=== PATIENT | female | born 1995 | race Caucasian/White ===

== ENCOUNTER 2019-08-04 17:38 | Emergency (ER) | payer SELFPAY ==
[~2019-08-04] VITALS: Ht 172 cm; Wt 63.0 kg
[~2019-08-04 17:38] MED LIST: CEPH-507 PO; CIPR-225 PO; CIPR500T78 PO; DOCU100C37 PO; IBUP-1780 PO; INDO25CA PO; NITR-65 PO; OXYC-465 PO; PREN1TAB79 PO; RANI-613 PO
[2019-08-04] MEDS ORDERED: AMOXICILLIN 500 MG (POLYMOX) CAP PO STA (18:03)
[2019-08-04] MEDS ORDERED: ACET-789 PO (18:09)
[2019-08-04] MEDS ORDERED: AMOX500C2 PO (18:09)
--- NOTE | 2019-08-04 18:10 | ED EENT ---
History of Present Illness General Chief Complaint: Dental Problems/Pain Stated Complaint: TOOTHACHE 4 1/2 WKS Nursing Triage Note: PT PRESENTS TO ED WITH COMPLAINTS OF L UPPER DENTAL PAIN STARTING AT 1600. PT REPORTS SHE HAS HAD ISSUES WITH HER TEETH BUT HAS BEEN UNBALE TO GET AN APPOINTMENT AT THE DENTAL CLINIC. PT ALSO REPORTS BEING APROX 5 WEEKS PREG Source: patient Exam Limitations: no limitations History of Present Illness Date Seen by Provider: Aug 04, 2019 Time Seen by Provider: 18:05 Initial Comments To ER with left lower dental pain since earlier today. She's had a broken left molar for quite some time but only became painful today. Additionally she is about 5 weeks . Timing/Duration: abrupt Severity: moderate Location: dental Associated Symptoms: denies symptoms Allergies and Home Medications Allergies Coded Allergies: No Known Drug Allergies (Unverified , 03/01/11) Home Medications No Active Prescriptions or Reported Meds Patient Home Medication List Home Medication List Reviewed: Yes Review of Systems Review of Systems Constitutional: see HPI Eyes: No Symptoms Reported Ears: No Symptoms Reported Nose: no symptoms reported Mouth: see HPI, pain Throat: no symptoms reported Respiratory: no symptoms reported Cardiovascular: no symptoms reported Musculoskeletal: no symptoms reported Past Efqvhbl-Jhrwnz-Zseulp Hx Patient Social History Alcohol Use: Denies Use Recreational Drug Use: No Smoking Status: Former Smoker Type Used: Cigarettes Former Smoker, Quit: Aug 04, 2019 Recent Foreign Travel: No Contact w/Someone Who Travel: No Recent Infectious Disease Expo: No Recent Hopitalizations: No Physical Abuse: No Sexual Abuse: No Mistreated: No Fear: No Immunizations Up To Date Tetanus Booster (TDap): Unknown PED Vaccines UTD: Yes Date of Influenza Vaccine: May 21, 2015 Seasonal Allergies Seasonal Allergies: No Past Medical History Surgeries: No Respiratory: No Cardiac: No Neurological: No Reproductive Disorders: No Female Reproductive Disorders: Denies Sexually Transmitted Disease: No HIV/AIDS: No Genitourinary: No Gastrointestinal: No Musculoskeletal: No Endocrine: No Cancer: No Psychosocial: No Integumentary: No Blood Disorders: No Adverse Reaction/Blood Tranf: No Family Medical History FH: bipolar disorder 19 MOTHER FH: brain tumor 19 FATHER Thyroid disease G8 SISTER Physical Exam Vital Signs Vital Signs - First Documented 08/04/19 17:46 Temp 35.8 Pulse 127 Resp 18 B/P (MAP) 156/97 (116) Pulse Ox 97 Height, Weight, BMI Height: 5'7" Weight: 160lbs. 0.0oz. [id number]; 21.00 BMI Method:Stated General Appearance: WD/WN, no apparent distress Eyes: bilateral eye normal inspection, bilateral eye PERRL, bilateral eye EOMI Ears: bilateral ear auricle normal, bilateral ear canal normal, bilateral ear TM normal Mouth/Throat: normal mouth inspection, other (carious tender left molar lower. No surrounding abscess that is palpable) Neck: non-tender, full range of motion Cardiovascular: regular rate, rhythm, no murmur Respiratory: normal breath sounds, no respiratory distress, no accessory muscle use Gastrointestinal: normal bowel sounds, non tender Neurologic/Psychiatric: alert, normal mood/affect, oriented x 3 Skin: normal color, warm/dry I offered her a inferior alveolar nerve block which she accepted, bupivacaine 0.5% without epinephrine 2 mL was used. Progress/Results/Core Measures Results/Orders My Orders Orders - KALE MÉNDEZ APRN Amoxicillin Capsule (Polymox Capsule) (08/04/19 18:03) Rx-Acetaminophen/Codeine (Rx-Tylenol #3) (08/04/19 18:15) Vital Signs/I&O 08/04/19 17:46 Temp 35.8 Pulse 127 Resp 18 B/P (MAP) 156/97 (116) Pulse Ox 97 Blood Pressure Mean: 116 Departure Impression Primary Impression: Dental caries extending into dentine Additional Impression: Pain, dental Disposition: HOME, SELF-CARE Condition: Improved Departure-Patient Inst. Referrals: NO,LOCAL PHYSICIAN (PCP/Family) Primary Care Physician Patient Instructions: Dental Pain Add. Discharge Instructions: 1. Use the wax provided to cover this open area of the broken tooth as needed. Call your dentist Tuesday for follow-up. Antibiotics and pain medication in the meantime. All discharge instructions reviewed with patient and/or family. Voiced understanding. Scripts Acetaminophen with Codeine (Tylenol with Codeine #3 Tablet) 1 Each Tablet 1 EACH PO Q6H PRN for PAIN-SEVERE (8-10) for 7 Days, #10 TAB Prov: KALE MÉNDEZ APRN 08/04/19 Amoxicillin (Amoxicillin) 500 Mg Capsule 500 MG PO TID, #21 CAP 0 Refills Prov: KALE MÉNDEZ APRN 08/04/19 KALE MÉNDEZ APRN Aug 04, 2019 18:10
[2019-08-04] MEDS ORDERED: RX-ACETAMINOPHEN/CODEINE TAB PPK #4 PO SCH (18:15)
[2019-08-04 18:31] VITALS: BP 132/78
== END 2019-08-04 18:31 | disposition home or self-care (01) ==
LOC: EDUNIT# 17:38 → ER 17:40
DX: O99.611 Diseases of the digestive system complicating pregnancy, first trimester (principal); K02.9 Dental caries, unspecified; Z87.891 Personal history of nicotine dependence; Z3A.01 Less than 8 weeks gestation of pregnancy
CPT/HCPCS: 99283

== ENCOUNTER 2020-03-07 09:57 | Inpatient (IN) | payer MEDICAID ==
[2020-03-07] VITALS (38 sets, daily range): BP systolic 109–151; BP diastolic 55–84
[~2020-03-07] VITALS: Ht 172.7 cm; Wt 84.2 kg
[~2020-03-07 09:57] MED LIST changes: +ACET-789 PO; +AMOX500C2 PO
--- NOTE | 2020-03-07 10:00 | NUR ---
PERI HAND presented to unit via from ED, accompanied by family, with c/o CONTRACTIONS. PERI HAND weighed, gowned, voided, and to bed. EFHM and TOCO applied, VS taken. PERI HAND oriented to bed controls, call light, TV, heat, and A/C controls.
[2020-03-07 10:33] LABS: BILIRUBIN,URINE NEGATIVE (NEGATIVE); CLARITY,URINE CLEAR; COLOR,URINE YELLOW; GLUCOSE, URINE (UA) NEGATIVE (NEGATIVE); KETONES,URINE NEGATIVE (NEGATIVE); LEUKOCYTE ESTERASE ,URINE 1+ (NEGATIVE); NITRITE,URINE NEGATIVE (NEGATIVE); PROTEIN,URINE NEGATIVE (NEGATIVE)
[2020-03-07 10:39] LABS: BACTERIA,URINE FEW /HPF; SQUAMOUS EPITHELIAL CELL,UR 25-50 /HPF
--- NOTE | 2020-03-07 13:20 | NUR ---
sve by this Rn. 3.5-4cm. thick posterior cervix -2 station. ballotable.
--- NOTE | 2020-03-07 13:25 | NUR ---
dr rodriguez updated on most recent cervical exam, contraction pattern. new orders received.
[2020-03-07] MEDS ORDERED: AMPICILLIN FOR IV USE 2,000 MG in WATER (STERILE) FOR INJECTION 14.8 ML IV ONE (13:30)
[2020-03-07] MEDS: D5 LR IV SOLUTION 1,000 ML IV SCH ×2 (13:34→13:35)
[2020-03-07] MEDS ORDERED: D5 LR IV SOLUTION 1,000 ML IV SCH ×2 (13:45→16:25)
[2020-03-07] MEDS ORDERED: AMPICILLIN FOR IV USE 2,000 MG VIAL ONE (13:48)
[2020-03-07] MEDS ORDERED: WATER (STERILE) FOR INJECTION 20 ML ONE (13:48)
[2020-03-07 13:55] LABS: BASOPHILS % (AUTO) 0 % (0-10); EOSINOPHILS # (AUTO) 0.1 10^3/uL (0.0-0.3); EOSINOPHILS % (AUTO) 1 % (0-10); HEMATOCRIT 33 % (35-52); HEMOGLOBIN 11.5 G/DL (11.5-16.0); LYMPHOCYTES # (AUTO) 2.4 X 10^3 (1.0-4.0); LYMPHOCYTES % (AUTO) 16 % (12-44); MEAN CORPUSCULAR HGB CONC 34 G/DL (32-36); MEAN CORPUSCULAR VOLUME 94 FL (80-99); MEAN PLATELET VOLUME 9.1 FL (7.4-10.4); MONOCYTES # (AUTO) 1.3 X 10^3 (0.0-1.0); MONOCYTES % (AUTO) 9 % (0-12); NEUTROPHILS % (AUTO) 75 % (42-75); PLATELET COUNT 264 10^3/uL (130-400); RED CELL DISTRIBUTION WIDTH 11.9 % (10.0-14.5); WHITE BLOOD COUNT 14.8 10^3/uL (4.3-11.0)
[2020-03-07 13:56] LABS: MEAN CORPUSCULAR HEMOGLOBIN 32 PG (25-34)
--- NOTE | 2020-03-07 16:10 | NUR ---
dr rodriguez here to patient bedside. assessing contractions/fhr pattern. new orders received.
[2020-03-07] MEDS ORDERED: OXYTOCIN PRE-MIX DRIP 500 ML IV SCH ×2 (16:25→16:26)
--- NOTE | 2020-03-07 16:25 | History & Physical ---
History and Physical Date Seen by Provider: Mar 07, 2020 Time Seen by Provider: 16:23 This patient is a 24-year-old 2 para 1 white female with an EDC of April 08, 2020. She presented now at 35-6/7 weeks' gestation complaining of contractions pain and pressure. She changed her cervix from 3 cm on initial presentation to now over 5 cm. has been uncomplicated although her GBS culture done at 35 weeks gestation was positive. Allergies are none Medications are vitamins Medical social and surgical histories are per the antepartum record HEENT exam is normal Neck is supple no lymphadenopathy no thyromegaly Abdomen is gravid soft nontender nondistended Extremities show no clubbing or cyanosis. There is no Homans sign. Pelvic exam is pending Laboratory Tests 03/07/20 13:47 Assessment and plan 35+ week gestation with labor in a patient with a GBS positive culture. She's been started on ampicillin empirically for GBS prophylaxis and that will be continued every 4 hours until delivery. We'll notify the jigger crown pouncing machine operator of the impending delivery. We anticipate a vaginal delivery under the cover of ampicillin for GBS prophylaxis 35+ weeks gestation with labor Allergies and Home Medications Allergies Coded Allergies: No Known Drug Allergies (Unverified , 03/01/11) Home Medications Acetaminophen with Codeine 1 Each Tablet, 1 EACH PO Q6H PRN for PAIN-SEVERE (8- 10) Prescribed by: KALE MÉNDEZ on 08/04/191808 Amoxicillin 500 Mg Capsule, 500 MG PO TID Prescribed by: KALE MÉNDEZ on 08/04/191808 Patient Home Medication List Home Medication List Reviewed: Yes Clinical Quality Measures DVT/VTE Risk/Contraindication: Risk Factor Score Per Nursin RFS Level Per Nursing on Admit: 1=Low/No VTE PPX MEHDI WALTERS MD Mar 07, 2020 16:25
[2020-03-07] MEDS ORDERED: MEASLES,MUMPS,RUBELLA 1 EA INJ SC ONE (16:30)
[2020-03-07] MEDS ORDERED: oxyCODONE/APAP 5/325MG (PERCOCET 5) TABLET PO PRN (16:30)
[2020-03-07] MEDS ORDERED: ONDANSETRON 4 MG/2 ML (SDV) Z0FRAN IVP PRN (16:30)
[2020-03-07] MEDS ORDERED: TETANUS,DIPTH,PERTUSS P/F (BOOSTRIX) 0.5 ML VIAL IM ONE (16:30)
[2020-03-07] MEDS ORDERED: ACET-789 PO (16:30)
[2020-03-07] MEDS ORDERED: BENZOCAINE/MENTHOL (DERMOPLAST) 60 ML CAN TP PRN (16:30)
[2020-03-07] MEDS ORDERED: DOCU-143 PO (16:30)
[2020-03-07] MEDS ORDERED: IBUP-1780 PO (16:30)
--- NOTE | 2020-03-07 16:31 | Discharge Inst-Surgical ---
Discharge Inst-Surgical Depart Medication/Instructions New, Converted or Re-Newed RX: RX on Chart Consults/Follow Up Patient Instructions: As directed Orders & Referrals Follow Up Appt: Call to make follow up appt. for patient in 4 weeks. Activity Per routine post vaginal delivery instructions. Please call in RX to patient pharmacy. Diet as tolerated Patient may shower or tub bathe as desired. Activity Activity as Tolerated: No Diet Discharge Diet: No Restrictions MEHDI WALTERS MD Mar 07, 2020 16:31
[2020-03-07 16:40] LABS: BASOPHILS % (AUTO) 0 % (0-10); EOSINOPHILS # (AUTO) 0.1 10^3/uL (0.0-0.3); EOSINOPHILS % (AUTO) 1 % (0-10); HEMATOCRIT 31 % (35-52); HEMOGLOBIN 10.7 G/DL (11.5-16.0); LYMPHOCYTES # (AUTO) 2.6 X 10^3 (1.0-4.0); LYMPHOCYTES % (AUTO) 19 % (12-44); MEAN CORPUSCULAR HEMOGLOBIN 32 PG (25-34); MEAN CORPUSCULAR HGB CONC 34 G/DL (32-36); MEAN CORPUSCULAR VOLUME 94 FL (80-99); MEAN PLATELET VOLUME 8.9 FL (7.4-10.4); MONOCYTES # (AUTO) 1.1 X 10^3 (0.0-1.0); MONOCYTES % (AUTO) 8 % (0-12); NEUTROPHILS # (AUTO) 10.2 X 10^3 (1.8-7.8); NEUTROPHILS % (AUTO) 73 % (42-75); PLATELET COUNT 262 10^3/uL (130-400)
[2020-03-07] MEDS: AMPICILLIN FOR IV USE 1,000 MG in WATER (STERILE) FOR INJECTION 7.4 ML IV SCH ×2 (17:24→21:31)
[2020-03-07] MEDS ORDERED: fentaNYL 2 mcg/ml BUPIVA 0.125 100 ML ONE (18:41)
--- NOTE | 2020-03-07 19:07 | NUR ---
Jaxon Castelan, PIEDAD and AMY here for epidural placement. Procedure explained, consent reviewed and signed by anesthesia. Questions answered to patient's satisfaction. Time out taken to verify correct patient/procedure. Patient up to side of bed, assisted into sitting position. Betadine prep done x3 and sterile drape applied. Local done, see anesthesia record. Test dose given, see anesthesia record for drug and dosage. Epidural catheter secured in place. Epidural placement complete. Assisted back into bed, monitors adjusted. Epidural dosed, see anesthesia record. Epidural of Sufenta/Bupvicaine @12cc/hr stated per pump. Patient tolerated procedure well.
[2020-03-07] MEDS ORDERED: LACTATED RINGERS 1,000 ML IV SCH (19:42)
[2020-03-07] MEDS ORDERED: METOCLOPRAMIDE INJ 10 MG/2 ML (REGLAN) IV PRN (19:45)
[2020-03-07] MEDS ORDERED: EPIDURAL (fentaNYL 2 MCG/ML BUPIVA 0.125%)100 ML BAG EPI SCH (19:45)
[2020-03-07] MEDS ORDERED: NALOXONE 0.4 MG/ML 1 ML (NARCAN) VIAL IV PRN ×2 (19:45)
[2020-03-07] MEDS ORDERED: ONDANSETRON 4 MG/2 ML (SDV) Z0FRAN IV PRN (19:45)
[2020-03-07] MEDS ORDERED: diphenhydrAMINE 50 MG/ML INJ (BENADRYL) IV PRN (19:45)
[2020-03-07] MEDS ORDERED: LIDOCAINE/EPI 2% 1:200,00 (XYLOCAINE) 10 ML VIAL ONE (19:54)
[2020-03-07] MEDS: DOCUSATE SODIUM 100 MG (COLACE) CAP PO SCH (22:22)
[2020-03-07] MEDS: KETOROLAC 30 MG/ML VIAL IVP SCH (22:23)
[2020-03-08] VITALS (7 sets, daily range): BP systolic 109–129; BP diastolic 67–86
--- NOTE | 2020-03-08 00:05 | NUR ---
Patient assisted to bathroom with standby assist. Positive void. Light rubra bleeding, no clots noted.
--- NOTE | 2020-03-08 00:10 | NUR ---
Patient transferred to [place] [id number] via wheelchair. Accompanied by in crib and S.O. Patient oriented to room, call light, bed controls, dietary menu, and thermostat. PP folder given and explained. No questions or concerns voiced at this time.
[2020-03-08] MEDS: APAP 300 MG/CODEINE 30 MG (TYLENOL #3) TAB PO PRN ×3 (02:03→19:17)
--- NOTE | 2020-03-08 03:37 | OPERATIVE REPORT ---
DATE OF SERVICE: 03/07/2020 DELIVERY NOTE The patient delivered by spontaneous vaginal delivery at 35+ weeks gestation, a viable male infant with Apgars of 8 and 9 at 1 and 5 minutes respectively, weight of 7 pounds and 4 ounces, time of 2149 and a cord blood pH that is pending. The was bulb suctioned on delivery of the head. A single nuchal cord was easily released. The was delivered from that point atraumatically and bulb suctioned again as it was dried and stimulated. The infant with stats as noted above. When relatively pulseless, the umbilical cord was doubly clamped, father cut the cord, the baby was passed to mom's abdomen. Dr. Diaz was on hand for delivery due to the prematurity. She attended the baby after delivery. The placenta delivered fairly promptly spontaneously [place]. It was normal with 3-vessel cord. The placenta was sent to pathology for permanent section due to labor. The cervix, vagina, rectum, and perineum were examined and found intact, except for a first-degree posterior fourchette and posterior vaginal wall laceration and a left labia majora laceration that entire laceration complex was repaired with a single suture of 3-0 Vicryl Rapide in a running locked fashion to good hemostasis and good reapproximation. The patient tolerated the delivery and the repair well. On completion of delivery and the repair, the sponge and needle counts were correct. Blood loss was around 200 mL for the delivery. The patient remained in the LDR for recovery. The baby remained with the mom. Job ID: [id number] DocumentID: [id number] Dictated Date: 03/07/2020 22:08:18 Relationship Consultant Date: 03/08/2020 03:36:30 Dictated By: MEHDI WALTERS MD
[2020-03-08] MEDS: KETOROLAC 30 MG/ML VIAL IVP SCH (04:10)
[2020-03-08] MEDS: DOCUSATE SODIUM 100 MG (COLACE) CAP PO SCH ×2 (08:37→19:17)
--- NOTE | 2020-03-08 09:15 | NUR ---
Dr Minor here to see pt. No new orders rec'd
--- NOTE | 2020-03-08 09:48 | Progress Note ---
Standard Progress Note Progress Notes/Assess & Plan Date Seen by a Provider: Mar 08, 2020 Time Seen by a Provider: 09:47 Progress/Assessment & Plan This patient is without complaint. She is ablating, voiding, tolerating oral intake well has good pain control. Vital Signs Date Time Temp Pulse Resp B/P (MAP) Pulse Ox O2 Delivery O2 Flow Rate FiO2 03/08/20 08:35 36.8 78 18 128/67 (87) 98 Room Air 03/08/20 04:10 36.2 72 16 124/86 (99) 99 Room Air 03/08/20 00:02 36.7 71 16 113/67 (82) Room Air 03/07/20 23:32 71 16 109/58 (75) Room Air 03/07/20 22:58 81 16 121/68 (85) Room Air 03/07/20 22:43 72 16 124/69 (87) Room Air 03/07/20 22:34 68 16 124/66 (85) Room Air 03/07/20 22:15 94 16 125/70 (88) Room Air 03/07/20 22:00 36.4 92 16 140/67 (91) Room Air 03/07/20 21:30 74 16 111/70 (84) 99 Room Air 03/07/20 21:15 78 16 115/70 (85) 100 Room Air 03/07/20 21:00 79 16 113/64 (80) 100 Room Air 03/07/20 20:45 99 16 113/72 (86) 99 Room Air 03/07/20 20:30 86 16 115/70 (85) 99 Room Air 03/07/20 20:10 89 16 122/61 (81) 99 Room Air 03/07/20 20:05 76 16 113/71 (85) 99 Room Air 03/07/20 20:01 102 16 113/55 (74) 100 Room Air 03/07/20 19:58 121 16 116/60 (78) 100 Room Air 03/07/20 19:55 85 16 128/67 (87) 100 Room Air 03/07/20 19:52 109 16 121/66 (84) 100 Room Air 03/07/20 19:49 109 16 116/64 (81) 100 Room Air 03/07/20 19:46 84 18 124/71 (88) 99 Room Air 03/07/20 19:43 85 18 127/71 (89) 99 Room Air 03/07/20 19:40 36.6 85 18 134/77 (96) 99 Room Air 03/07/20 19:35 89 18 126/72 (90) 99 Room Air 03/07/20 19:30 100 18 129/77 (94) 100 Room Air 03/07/20 19:27 93 18 129/77 (94) 100 Room Air 03/07/20 19:25 90 18 141/80 (100) 100 Room Air 03/07/20 19:22 94 18 137/74 (95) 99 Room Air 03/07/20 19:17 94 18 141/77 (98) 100 Room Air 03/07/20 19:10 90 18 130/84 (99) 100 Room Air 03/07/20 18:40 95 20 151/71 (97) Room Air 03/07/20 18:25 83 20 118/77 (91) 100 Room Air 03/07/20 18:10 81 20 113/72 (86) 100 Room Air 03/07/20 17:55 73 20 122/74 (90) Room Air 03/07/20 17:25 77 20 112/75 (87) Room Air 03/07/20 17:10 37.0 75 20 124/81 (95) Room Air 03/07/20 15:45 36.7 78 20 120/82 (95) 100 Room Air 03/07/20 13:24 36.7 80 20 123/71 (88) 100 Room Air 03/07/20 10:43 36.6 85 20 98 Room Air 03/07/20 10:37 36.7 85 20 98 Room Air I & O 03/08/20 07:00 Intake Total 1529.6 ml Balance 1529.6 ml Vital signs are stable. Patient is afebrile. Fundus is firm below the umbilicus and nontender. Extremities show no clubbing cyanosis. There is no Homans sign. Assessment and plan day number 1 doing well. Plan is for routine convalescence. MEHDI WALTERS MD Mar 08, 2020 09:48
[2020-03-08] MEDS ORDERED: IBUPROFEN 800 MG (MOTRIN) TAB PO SCH (10:00)
--- NOTE | 2020-03-08 10:00 | NUR ---
Ice pack provided to pt at this time. Pt denies further needs or concerns.
[2020-03-08] MEDS ORDERED: IBUPROFEN 800 MG (MOTRIN) TAB PO ONE (10:09)
[2020-03-08] MEDS ORDERED: WITCH HAZEL(TUCKS) 40 EA JAR TOP PRN (14:15)
--- NOTE | 2020-03-08 14:15 | NUR ---
Ice pack provided at this time per pt request along with Tucks pads.
[2020-03-08] MEDS: IBUPROFEN 800 MG (MOTRIN) TAB PO SCH ×2 (16:13→22:03)
[2020-03-09] MEDS: APAP 300 MG/CODEINE 30 MG (TYLENOL #3) TAB PO PRN (01:22)
[2020-03-09 04:20] VITALS: BP 109/76
[2020-03-09] MEDS: IBUPROFEN 800 MG (MOTRIN) TAB PO SCH ×2 (04:23→09:53)
--- NOTE | 2020-03-09 06:47 | Anesthesia-Regional Post-Op ---
Regional Patient Condition Mental Status: Alert, Oriented x3 Circulation: Same as Pre-Op Headache: Absent Sensation: Full Recovery Motor Block: Absent Post Op Complications Complications None Follow Up Care/Instructions Patient Instructions None needed. Anesthesia/Patient Condition Patient is doing well, no complaints, stable vital signs, no apparent adverse anesthesia problems. No complications reported per nursing. BEBE GRAHAM CRNA Mar 09, 2020 06:47
--- NOTE | 2020-03-09 08:32 | Progress Note ---
Standard Progress Note Progress Notes/Assess & Plan Date Seen by a Provider: Mar 09, 2020 Time Seen by a Provider: 08:31 Progress/Assessment & Plan This patient is without complaint. She is ablating, voiding, tolerating oral intake well has good pain control. Vital Signs Date Time Temp Pulse Resp B/P (MAP) Pulse Ox O2 Delivery O2 Flow Rate FiO2 03/08/20 08:35 36.8 78 18 128/67 (87) 98 Room Air 03/08/20 04:10 36.2 72 16 124/86 (99) 99 Room Air 03/08/20 00:02 36.7 71 16 113/67 (82) Room Air 03/07/20 23:32 71 16 109/58 (75) Room Air 03/07/20 22:58 81 16 121/68 (85) Room Air 03/07/20 22:43 72 16 124/69 (87) Room Air 03/07/20 22:34 68 16 124/66 (85) Room Air 03/07/20 22:15 94 16 125/70 (88) Room Air 03/07/20 22:00 36.4 92 16 140/67 (91) Room Air 03/07/20 21:30 74 16 111/70 (84) 99 Room Air 03/07/20 21:15 78 16 115/70 (85) 100 Room Air 03/07/20 21:00 79 16 113/64 (80) 100 Room Air 03/07/20 20:45 99 16 113/72 (86) 99 Room Air 03/07/20 20:30 86 16 115/70 (85) 99 Room Air 03/07/20 20:10 89 16 122/61 (81) 99 Room Air 03/07/20 20:05 76 16 113/71 (85) 99 Room Air 03/07/20 20:01 102 16 113/55 (74) 100 Room Air 03/07/20 19:58 121 16 116/60 (78) 100 Room Air 03/07/20 19:55 85 16 128/67 (87) 100 Room Air 03/07/20 19:52 109 16 121/66 (84) 100 Room Air 03/07/20 19:49 109 16 116/64 (81) 100 Room Air 03/07/20 19:46 84 18 124/71 (88) 99 Room Air 03/07/20 19:43 85 18 127/71 (89) 99 Room Air 03/07/20 19:40 36.6 85 18 134/77 (96) 99 Room Air 03/07/20 19:35 89 18 126/72 (90) 99 Room Air 03/07/20 19:30 100 18 129/77 (94) 100 Room Air 03/07/20 19:27 93 18 129/77 (94) 100 Room Air 03/07/20 19:25 90 18 141/80 (100) 100 Room Air 03/07/20 19:22 94 18 137/74 (95) 99 Room Air 03/07/20 19:17 94 18 141/77 (98) 100 Room Air 03/07/20 19:10 90 18 130/84 (99) 100 Room Air 03/07/20 18:40 95 20 151/71 (97) Room Air 03/07/20 18:25 83 20 118/77 (91) 100 Room Air 03/07/20 18:10 81 20 113/72 (86) 100 Room Air 03/07/20 17:55 73 20 122/74 (90) Room Air 03/07/20 17:25 77 20 112/75 (87) Room Air 03/07/20 17:10 37.0 75 20 124/81 (95) Room Air 03/07/20 15:45 36.7 78 20 120/82 (95) 100 Room Air 03/07/20 13:24 36.7 80 20 123/71 (88) 100 Room Air 03/07/20 10:43 36.6 85 20 98 Room Air 03/07/20 10:37 36.7 85 20 98 Room Air I & O 03/08/20 07:00 Intake Total 1529.6 ml Balance 1529.6 ml Vital signs are stable. Patient is afebrile. Fundus is firm below the umbilicus and nontender. Extremities show no clubbing cyanosis. There is no Homans sign. Assessment and plan day number 1 doing well. Plan is for routine convalescence. March 09, 2020 Patient is without complaint. She is ambulating, voiding, tolerating oral intake well has good pain control. Patient is requesting discharge home. Vital Signs Date Time Temp Pulse Resp B/P (MAP) Pulse Ox O2 Delivery O2 Flow Rate FiO2 03/09/20 04:20 36.7 67 18 109/76 (87) 99 Room Air 03/08/20 22:05 36.4 73 18 129/73 (91) 99 Room Air 03/08/20 19:40 36.3 72 18 109/72 (84) 98 Room Air 03/08/20 16:11 36.5 65 18 115/80 (92) 98 Room Air 03/08/20 11:43 36.6 63 18 120/73 (89) 98 Room Air 03/08/20 08:35 36.8 78 18 128/67 (87) 98 Room Air Vital signs are stable. Patient is afebrile. Fundus is firm below the umbilicus and nontender. Extremities show no clubbing or cyanosis. There is no Homans sign. Assessment and plan day number 2 status post vaginal delivery at 35+ weeks gestation. Patient is doing well and will be discharged home Final Diagnosis 35 week spontaneous vaginal delivery MEHDI WALTERS MD Mar 09, 2020 08:32
[2020-03-09 09:51] VITALS: BP 127/87
[2020-03-09] MEDS: DOCUSATE SODIUM 100 MG (COLACE) CAP PO SCH (09:53)
--- NOTE | 2020-03-09 10:34 | NUR ---
DISCHARGE INSTRUCTIONS EXPLAINED TO PT WITH COPY PROVIDED TO PT ALONG WITH NARCOTIC PRESCRIPTION. PT NOTIFIED OF SCRIPTS CALLED TO [facility]. PT ALSO NOTIFIED OF NEED TO SCHEDULE FOLLOW UP APPT. PT VERBALIZES UNDERSTANDING OF INSTRUCTIONS AND SIGNS TO VERIFY. PT DENIES NEEDS OR CONCERNS AT THIS TIME Addendum: 03/09/20 at 1340 by GHAZALA TRAN RN TIME IS ERROR. EVENT OCCURRED AT 1304.
--- NOTE | 2020-03-09 13:20 | NUR ---
PT AMBULATES OFF UNIT TO PRIVATE VEHICLE, ACCOMPANIED BY RN, S.O., AND ALL PERSONAL BELONGINGS. NO S/S OF DISTRESS NOTED.
[2020-03-12] MEDS ORDERED: IBUPROFEN 800 MG (MOTRIN) TAB PO SCH (12:00)
== END 2020-03-09 13:20 | disposition home or self-care (01) | DRG 807 ==
LOC: WSo 09:57 → LDRP 09:58 → WSo 15:45 → LDRP 03-08 00:47
PROVIDERS: ADMIT Obstetrics & Gynecology; ATTEND Obstetrics & Gynecology
PROC: 0HQ9XZZ Repair Perineum Skin, External Approach (ICD-10-PCS; principal; 2020-03-07)
PROC: 10E0XZZ Delivery of Products of Conception, External Approach (ICD-10-PCS; 2020-03-07)
DX: O60.14X0 Preterm labor third trimester with preterm delivery third trimester, not applicable or unspecified (principal); Z37.0 Single live birth; O70.0 First degree perineal laceration during delivery; Z3A.35 35 weeks gestation of pregnancy; O99.824 Streptococcus B carrier state complicating childbirth; O69.81X0 Labor and delivery complicated by cord around neck, without compression, not applicable or unspecified; Z23 Encounter for immunization
CPT/HCPCS: 36415; 81000; 85025; 86850; 86900; 86901; 87088; 90715; 99212